=== PATIENT | female | born 2000 | race Caucasian/White ===

== ENCOUNTER 2025-01-22 09:46 | Emergency (ER) | payer BC, OTHER ==
[~2025-01-22] VITALS: Ht 165.1 cm; Wt 146.9 kg
--- NOTE | 2025-01-22 09:59 | Physician Documentation ---
History of Present Illness ~ Chief Complaint: Vaginal Bleeding Stated Complaint: VAGINAL BLEEDING Time Seen by MD: 09:58 HPI This is a 24-year-old female who presents to the emergency department due to concerns for heavy vaginal bleeding for the last several days. She notes that she has a history of irregular menses, but has never had bleeding quite this severe. Denies other medical problems. Primarily presented today due to dizziness. Notes saturating about three pads an hour with large clots. Chance of . Denies dysuria, denies fever, chills, nausea, vomiting. No pelvic or abd pain. Medication Reconciliation Allergies: Coded Allergies: No Known Allergies (Unverified , 01/22/25) Scheduled Norethindrone Acetate (Norethindrone Acetate), 1 TAB PO TID Tranexamic Acid (Tranexamic Acid), 2 TAB PO Q8H Review of Systems ROS As stated above in the HPI, otherwise all systems are reviewed and negative. Physical Exam Vital Signs: Temperature: 98.8, Source: Oral, Heart Rate: 98, Respiratory Rate: 20, BP: 172/88, Pulse Oximetry: 99, Weight: 146.900 Physical Exam General: Alert, no apparent distress. Neck: Full range of motion. Respiratory: Lungs clear, no respiratory distress. Chest: No accessory muscle use. Cardiovascular: Regular rate and rhythm, no murmurs. Gastrointestinal: Soft, nontender, nondistended. Bowels sounds present. Pelvic: Normal external female genitalia. Active vaginal bleeding. Cervix visualized as open about a fingertip with active bleeding and small clots. Extremities: Normal range of motion, no deformity. Neurologic: Oriented x4. Psychiatric: Normal mood and affect. Skin: Normal color, warm and dry. No edema, no ecchymosis. Procedures Procedures Pelvic exam shows normal external female genitalia. Bleeding in vaginal vault. Cervix open a fingertip with active bleeding including small clots. No lesions visible within vault. Progress Progress Note 1135: Evaluation Engineer Dr. Stephenson recommends TXA over norethindrone. Will instruct patient to take TXA initially but that she may add norethindrone if bleeding persists. Dr. Stephenson agreeable to reaching out to patient soon for an appt. Results/Orders Results/Orders Orders - ANGELLA WORLEY NP Pelvic Set Up (01/22/25 ) Completed Orders - ANGELLA WORLEY NP Medroxyprogesterone Acet. Tab (Provera T (01/22/25 11:15) Medications Received in ER Medications (Trade) Dose Ordered Sig/Juhi Route PRN Reason Start Time Stop Time Status Last Admin Dose Admin (Provera tablet) 10 mg ONCE STAT PO 01/22/25 11:15 01/22/25 11:18 DC 01/22/25 11:32 10 MG Vital Signs 01/22/25 01/22/25 01/22/25 09:52 10:02 10:02 Temp 98.8 98.8 Pulse 98 99 Resp 20 18 18 B/P (MAP) 172/88 153/103 (120) Pulse Ox 99 100 O2 Flow Rate 0 Laboratory Tests Test 01/22/25 09:55 01/22/25 10:19 Urine Specimen Description Cln catch midstream Urine Color Red Urine Clarity Cloudy Urine pH Urine Specific [place] Urine Protein Urine Glucose (UA) Urine Ketones Urine Occult Blood Urine Nitrite Urine Bilirubin Urine Urobilinogen Urine Leukocyte Esterase Urine RBC Tntc Urine WBC 0-4 Urine Squamous Epithelial Cells None seen Urine Bacteria Few Urine Mucus None seen Urine Culture Indicated Not ind Volume Urine Centrifuged 10 ml Urine HCG, Qualitative Negative Urine Comment See note White Blood Count 12.0 H Red Blood Count 4.82 Hemoglobin 11.7 L Hematocrit 36.0 Mean Corpuscular Volume 74.6 L Mean Corpuscular Hemoglobin 24.2 L Mean Corpuscular Hemoglobin Concent 32.5 L Red Cell Distribution Width 16.8 H Platelet Count 265 Mean Platelet Volume 9.1 Neutrophils (%) (Auto) 72.5 Lymphocytes (%) (Auto) 19.8 L Monocytes (%) (Auto) 6.3 Eosinophils (%) (Auto) 1.1 Basophils (%) (Auto) 0.3 Neutrophils # (Auto) 8.7 H Lymphocytes # (Auto) 2.4 Monocytes # (Auto) 0.8 Eosinophils # (Auto) 0.1 Basophils # (Auto) 0.0 CBC Comment Sodium Level 139 Potassium Level 3.9 Chloride Level 104 Carbon Dioxide Level 27.1 Anion Gap 8 Blood Urea Nitrogen 13 Creatinine 0.78 Estimated GFR/1.73 m2 > 90 BUN/Creatinine Ratio 16.7 Glucose Level 89 Calcium Level 9.2 Total Bilirubin 0.4 Aspartate Amino Transf (AST/SGOT) 18 Alanine Aminotransferase (ALT/SGPT) 38 Alkaline Phosphatase 78 Total Protein 8.0 Albumin 3.7 Globulin 4.3 Albumin/Globulin Ratio 0.9 L Lipase 53 Chemistry Comments Medical Decision Making Additional Comment Hemodynamically stable. Only very mild anemia. We will treat with Provera. Sent home with TXA as first line, norethindrone as second line. Return if worse. Contacted belt machine operator Dr. Stephenson to arrange followup as an outpatient. Departure Time of Disposition: 10:58 Disposition: 01 HOME / SELF CARE / HOMELESS Impression: Primary Impression: Vaginal bleeding Condition: Stable Discharge Instructions: Dysfunctional Uterine Bleeding Additional Instructions: Take the tranexemic acid as prescribed. If still bleeding, add the norethindrone as prescribed. Call Dr. Stephenson's office for an appointment. He is aware of you and recommended the tranexemic acid as first line. You may not need the norethindrone. Return if worse. Referrals: JANEEN STEPHENSON MD Prescriptions Tranexamic Acid (Tranexamic Acid) 650 Mg Tablet 2 TAB PO Q8H for 5 Days, #30 TAB 0 Refills Prov: ANGELLA WORLEY NP 01/22/25 Norethindrone Acetate (Norethindrone Acetate) 5 Mg Tablet 1 TAB PO TID for 7 Days, #21 TAB 0 Refills Prov: ANGELLA WORLEY NP 01/22/25 Education Educated: Patient, Family Educated regarding: diagnosis, treatment, prognosis, need for follow up Signature Scribe Signature: x Attestation: The note accurately reflects work and decisions made by me.Angella Mrak NP 01/22/25 10:31 ANGELLA WORLEY NP Jan 22, 2025 09:59
[2025-01-22 10:34] LABS: MEAN PLATELET VOLUME 9.1 FL (7.4-10.4); RED CELL DISTRIBUTION WIDTH 16.8 % (11.5-14.5)
[2025-01-22 10:35] LABS: UA COLLECTION TYPE CLN CATCH MIDSTREAM
[2025-01-22 10:36] LABS: URINE HCG NEGATIVE (NEG)
[2025-01-22 10:42] LABS: CREATININE 0.78 MG/DL (0.40-0.90); TOTAL CARBON DIOXIDE 27.1 MMOL/L (24-32); eCRCL 100 ML/MIN; eGFR > 90 ML/MIN
[2025-01-22 10:47] LABS: MUCUS STRANDS NONE SEEN /LPF (Neg); SQUAMOUS EPITHELIAL CELL,UR NONE SEEN /LPF (FEW)
[2025-01-22] MEDS ORDERED: NORE5TAB PO (11:15)
[2025-01-22] MEDS: medroxyprogesterone acet. 2.5mg tablet PO STA (11:32)
[2025-01-22] MEDS ORDERED: TRAN650T5 PO (11:34)
[2025-01-22 11:42] VITALS: BP 132/100; PULSE 99; RESP 18; TEMP 98.8; O2SAT 98
== END 2025-01-22 11:45 | disposition home or self-care (01) ==
LOC: ER 09:49
DX: N93.9 Abnormal uterine and vaginal bleeding, unspecified (principal); Z79.899 Other long term (current) drug therapy
CPT/HCPCS: 36415; 80053; 81001; 81025; 83690; 85025; 99284